=== PATIENT | female | born 1990 | race American Indian/Alaskan Native ===

== ENCOUNTER 2021-11-16 13:10 | Outpatient (CLI) | payer MEDICAID ==
[2021-11-16 14:39] VITALS: BP 139/78
[2021-11-16 15:51] LABS: Bilirubin,Urine SM (Negative); Blood,Urine NEG (Negative); Color,Urine Amber (Yellow)
[2021-11-16 15:54] LABS: Ictotest,Urine Positive (Negative)
[2021-11-16 15:56] LABS: Bacteria,Urine 1+ /HPF (Negative); Hyaline Casts,Urine 2 /LPF; Mucus,Urine 3+ /HPF
[2021-11-16] MEDS ORDERED: LACTATED RINGERS 500 ML IV ONE (16:30)
--- NOTE | 2021-11-16 19:03 | Ultrasound Report ---
US OB BPP wo non-stress, US OB limited INDICATION / CLINICAL INFORMATION: BPP/CHEL ptl. COMPARISON: None available. FINDINGS: BREATHING MOVEMENT = 2 GROSS BODY MOVEMENT = 2 TONE = 2 QUALITATIVE AMNIOTIC FLUID VOLUME = 2 TOTAL BIOPHYSICAL SCORE = 8/8 AMNIOTIC FLUID INDEX (cm) = 10.5 PRESENTATION: Cephalic. HEART RATE (beats per minute): 124-166 IMPRESSION: 1. Single live intrauterine . No significant abnormality. biophysical profile = 01/08 2. Amniotic fluid index is within normal limits, measuring 10.5 cm. Signer Name: Marques Tavarez MD Signed: 11/16/2021 6:59 PM Workstation Name: [id number]
== END 2021-11-16 19:38 | disposition home or self-care (01) ==
LOC: EDSTATUS 13:50 → TRG 13:57 → APU 13:58 → TRG 19:38
PROVIDERS: ATTEND Obstetrics & Gynecology
DX: O26.893 Other specified pregnancy related conditions, third trimester (principal); R51.9 Headache, unspecified; R05.8 Other specified cough; R07.81 Pleurodynia; J00 Acute nasopharyngitis [common cold]; R11.2 Nausea with vomiting, unspecified; Z3A.26 26 weeks gestation of pregnancy
CPT/HCPCS: 59025; 76815; 76819; 81001